=== PATIENT | female | born 1975 | race Caucasian/White ===

== ENCOUNTER 2019-06-01 05:29 | Outpatient (CLI) | payer OTHER ==
[~2019-06-01] VITALS: Ht 162.6 cm; Wt 94.3 kg
[~2019-06-01 05:29] MED LIST: AMOX1TAB63 PO; CEFU250T PO; CEPH500C PO; CITA40TA19 PO; CYCL10TA9 PO; DIAZ-345 PO; HYDR1TAB PO; KETO75CA PO; METH4TAB PO; NAPR-243 PO; NEOMYCIN; SULF1TAB38 PO; TRAM50TA2 PO; TRM50T PO; VILA1TAB PO; [UNRECOGNIZED DRUG - CODE] OD; [UNRECOGNIZED DRUG - OTHER]
[2019-06-01] MEDS ORDERED: DULO60CA6 PO (09:14)
== END 2019-06-01 09:33 | disposition home or self-care (01) ==
LOC: PREOP 05:29
PROVIDERS: ATTEND Obstetrics & Gynecology
DX: Z01.818 Encounter for other preprocedural examination (principal)

== ENCOUNTER 2019-06-13 08:29 | Day surgery (SDC) | payer OTHER ==
[2019-06-13] VITALS (10 sets, daily range): BP systolic 108–139; BP diastolic 50–90
[~2019-06-13] VITALS: Ht 162.6 cm; Wt 96.3 kg
[~2019-06-13 08:29] MED LIST changes: +DULO60CA6 PO
[2019-06-13] MEDS: LACTATED RINGERS 1,000 ML IV PRN ×2 (08:35→11:00)
[2019-06-13] MEDS ORDERED: BUP/EPI 0.25% 1:200,000 (MARCAINE) 10 ML VIAL IJ ONE (08:51)
[2019-06-13] MEDS ORDERED: proPOfol 200 MG/20 ML (DIPRIVAN) VIAL IV ONE ×2 (09:07→10:51)
[2019-06-13] MEDS ORDERED: DEXAMETHASONE 10 MG/ML (DECADRON) 1 ML VIAL ONE (09:07)
[2019-06-13] MEDS ORDERED: ONDANSETRON 4 MG/2 ML (SDV) Z0FRAN ONE (09:07)
[2019-06-13] MEDS ORDERED: SEVOFLURANE (ULTANE) 15 ML INHAL SOLN ONE (09:07)
[2019-06-13] MEDS ORDERED: fentaNYL INJECTION 100 MCG/2 ML AMP ONE (09:08)
[2019-06-13] MEDS ORDERED: MIDAZOLAM 2 MG/2 ML (VERSED) VIAL ONE ×3 (09:08→10:53)
[2019-06-13 09:12] LABS: BASOPHILS % (AUTO) 1 % (0-10); EOSINOPHILS # (AUTO) 0.1 10^3/uL (0.0-0.3); EOSINOPHILS % (AUTO) 1 % (0-10); HEMATOCRIT 39 % (35-52); HEMOGLOBIN 13.1 G/DL (11.5-16.0); LYMPHOCYTES % (AUTO) 32 % (12-44); MEAN CORPUSCULAR HEMOGLOBIN 30 PG (25-34); MEAN CORPUSCULAR HGB CONC 34 G/DL (32-36); MEAN CORPUSCULAR VOLUME 88 FL (80-99); MEAN PLATELET VOLUME 11.3 FL (7.4-10.4); MONOCYTES # (AUTO) 0.5 X 10^3 (0.0-1.0); MONOCYTES % (AUTO) 8 % (0-12); NEUTROPHILS # (AUTO) 3.7 X 10^3 (1.8-7.8); NEUTROPHILS % (AUTO) 59 % (42-75); PLATELET COUNT 197 10^3/uL (130-400); RED CELL DISTRIBUTION WIDTH 13.4 % (10.0-14.5); WHITE BLOOD COUNT 6.2 10^3/uL (4.3-11.0)
[2019-06-13] MEDS ORDERED: ONDANSETRON 4 MG/2 ML (SDV) Z0FRAN IVP PRN ×2 (10:45→11:30)
[2019-06-13] MEDS ORDERED: KETOROLAC 30 MG/ML VIAL IVP ONE (10:45)
[2019-06-13] MEDS ORDERED: D5 LR IV SOLUTION 1,000 ML IV SCH (10:45)
--- NOTE | 2019-06-13 10:56 | Progress Note-Pre Operative ---
Pre-Operative Progress Note H&P Reviewed The H&P was reviewed, patient examined and no changes noted. Date Seen by Provider: Jun 13, 2019 Time Seen by Provider: 10:55 Date H&P Reviewed: Jun 13, 2019 Time H&P Reviewed: 10:55 Pre-Operative Diagnosis: AUB, BMI 36 ISABELLA ESTEVEZ DO Jun 13, 2019 10:56
--- NOTE | 2019-06-13 11:01 | Discharge Inst-Women's Service ---
Discharge Inst-Women's Serv Depart Medication/Instructions New, Converted or Re-Newed RX: Other (OTC Motrin PRN pain) Problems Reviewed?: Yes Consults/Follow Up Additional Follow Up: Yes (Return to clinic 2-3 weeks) Activity Activity: Activity as Tolerated Driving Instructions: No Driving for 24 Hours NO SMOKING: NO SMOKING Diet Discharge Diet: No Restrictions Symptoms to Report to : Pain Increased, Fever Over 101 Degrees F, Vaginal Bleeding Increase For Any Problems or Questions: Contact Your Physician Skin/Wound Care Bathing Instructions: YOLANDA Armando APRN Jun 13, 2019 11:01
[2019-06-13] MEDS ORDERED: HYDROmorphone 2 MG/ML VIAL (DILAUDID) IV ONE (11:30)
--- NOTE | 2019-06-13 14:29 | Anesthesia-General Post-Op ---
General Patient Condition Mental Status/LOC: Same as Preop Cardiovascular: Satisfactory Nausea/Vomiting: Absent Respiratory: Satisfactory Pain: Controlled Complications: Absent Post Op Complications Complications None Follow Up Care/Instructions Patient Instructions None needed. Anesthesia/Patient Condition Patient Condition Patient is doing well, no complaints, stable vital signs, no apparent adverse anesthesia problems. No complications reported per nursing. FRANTZ SINGH CRNA Jun 13, 2019 14:29
--- NOTE | 2019-06-13 23:21 | OPERATIVE REPORT ---
DATE OF SERVICE: PREOPERATIVE DIAGNOSES: 1. A 44-year-old female with abnormal uterine bleeding. 2. BMI of 36. POSTOPERATIVE DIAGNOSES: 1. A 44-year-old female with abnormal uterine bleeding. 2. BMI of 36. PROCEDURE: D and C, hysteroscopy. SURGEON: Luis M Ryder DO ANESTHESIA: General endotracheal. ESTIMATED BLOOD LOSS: Minimal. URINE OUTPUT: 50 mL, clear, drained at the end of procedure. FLUIDS: 800 mL lactated Ringer's solution. FINDINGS: A grossly normal external female genitalia, vagina and cervix as well as endometrial cavity with thick endometrial tissue. SPECIMEN SENT: Endometrial curettings. INDICATIONS FOR PROCEDURE: This 44-year-old female was the patient that was consulted to my office for passing big blood clots with her periods that have become irregular and more heavy in the past 2 to 3 years. I discussed with the patient hormonal therapy being contraindicated due to her history of smoking. We discussed D and C as well as possible IUD placement down the line if results are not achieved by the traditional methods. The D and C would offer us both diagnostic and potentially curative method of dealing with her bleeding. Risks of the procedure were discussed with the patient in detail. After all of her questions were answered in the preoperative area, the patient's consent was obtained, the patient was taken to the operating room. OPERATIVE REPORT IN DETAIL: Once in the operating room, anesthesia was found to be adequate, she was placed in dorsal lithotomy position, prepped and draped in normal sterile fashion. A timeout was performed. Weighted speculum was inserted to the patient's vagina. Right angle retractor was used to visualize the cervix, which was grasped at 12 o'clock position using a long Allis clamp. I then performed paracervical block at 3 and 9 o'clock positions using 0.25% Marcaine. Care was taken to aspirate for injecting, 5 mL were injected at each injection site. I then gently sound the uterine cavity, depth was found to be 8 cm. I then gently dilated the cervix using Fely dilators to allow placement of my hysteroscope. Using the [employer]log[employer] fluid management system and normal saline as my visual medium, I advanced the hysteroscope into the endometrial cavity and I am unable to notice any endometrial masses. Bilateral tubal ostia were noted and appeared to be grossly normal. There are no submucosal fibroids noted. I then removed the hysteroscope and proceeded with performing curettage of the endometrial cavity. Moderate to large amount of endometrial tissue was collected after doing this. The specimen was then sent with endometrial curettings. All the instruments were removed from the patient's vagina. A straight catheterization is used to drain the bladder. The patient tolerated the procedure well and sent to recovery area in stable condition. Lap and sponge counts were correct at the end of the procedure. Instrument counts correct as well. Job ID: [id number] DocumentID: [id number] Dictated Date: 06/13/2019 11:40:39 Collections Manager Date: 06/13/2019 23:21:09 Dictated By: DO MIKE LOYOLA
== END 2019-06-13 13:45 | disposition home or self-care (01) ==
LOC: SDC 08:29
PROVIDERS: ATTEND Obstetrics & Gynecology
DX: N93.9 Abnormal uterine and vaginal bleeding, unspecified (principal); F41.9 Anxiety disorder, unspecified; F32.9 Major depressive disorder, single episode, unspecified; F17.210 Nicotine dependence, cigarettes, uncomplicated; Z68.36 Body mass index [BMI] 36.0-36.9, adult; Z88.5 Allergy status to narcotic agent; Z90.49 Acquired absence of other specified parts of digestive tract; Z98.51 Tubal ligation status; Z79.899 Other long term (current) drug therapy; Z82.3 Family history of stroke; Z82.49 Family history of ischemic heart disease and other diseases of the circulatory system; Z83.49 Family history of other endocrine, nutritional and metabolic diseases; Z81.8 Family history of other mental and behavioral disorders
CPT/HCPCS: 36415; 84703; 85025; 86850; 86900; 86901; 87081; 88305

== ENCOUNTER 2019-07-14 05:32 | Outpatient (CLI) | payer OTHER ==
[~2019-07-14] VITALS: Ht 162.6 cm; Wt 95.5 kg
[2019-07-18] MEDS ORDERED: SIME80TA16 PO (07:15)
[2019-07-18] MEDS ORDERED: HYDR-34 PO (07:15)
[2019-07-18] MEDS ORDERED: IBUP-844 PO (07:15)
[2019-07-18] MEDS ORDERED: DOCU100C37 PO (07:15)
== END 2019-07-14 09:46 | disposition home or self-care (01) ==
LOC: PREOP 05:32
PROVIDERS: ATTEND Obstetrics & Gynecology
DX: Z01.818 Encounter for other preprocedural examination (principal)

== ENCOUNTER 2021-07-26 03:02 | Emergency (ER) | payer SELFPAY ==
[~2021-07-26] VITALS: Ht 162.6 cm; Wt 95.2 kg
[~2021-07-26 03:02] MED LIST changes: +DOCU100C37 PO; +HYDR-34 PO; +IBUP-844 PO; +SIME80TA16 PO
[2021-07-26 03:10] VITALS: BP 149/84
--- NOTE | 2021-07-26 03:22 | ED EENT ---
History of Present Illness General Chief Complaint: Dental Problems/Pain Stated Complaint: WISDOM TEETH PULLED 2 DAYS AGO,POSS INFECTION Source: patient, other Exam Limitations: no limitations History of Present Illness Date Seen by Provider: Jul 26, 2021 Time Seen by Provider: 03:09 Initial Comments Patient presents the ER by private conveyance chief complaint that she had wisdom teeth taken out top and bottom on the right side 2 days ago. Since that time she feels is gotten an infection. She took a dose of azithromycin yesterday and another one this morning and still having significant pain. She has some Magic mouthwash which was helping with the pain until tonight and she cannot sleep. She is been using ibuprofen 600 mg every 6 hours and Tylenol 500 mg every [address] Junie DDS at [facility] is caring for her. Allergies and Home Medications Allergies Coded Allergies: codeine (Unverified Allergy, Mild, vomiting, 07/18/19) Patient Home Medication List Home Medication List Reviewed: Yes Docusate Sodium (Docusate Sodium) 100 Mg Capsule, 100 MG PO BID PRN for CONS TIPATION-1ST LINE Prescribed by: YOLANDA CARTER on 07/18/19714 Duloxetine HCl (Cymbalta) 60 Mg Capsule.dr, 60 MG PO DAILY, (Reported) Entered as Reported by: NAYELY CAMILO on 06/01/19913 Hydrocodone Bit/Acetaminophen (Lortab 7.5 Mg Tablet) 1 Ea Tablet, 2 EA PO Q6H PRN for Pain-See Instructions Prescribed by: YOLANDA CARTER on 07/18/19714 Ibuprofen (Ibu) 600 Mg Tablet, 600 MG PO Q6H PRN for PAIN-MODERATE Prescribed by: YOLANDA CARTER on 07/18/19714 Simethicone (Simethicone) 80 Mg Tab.chew, 40 MG PO TID PRN for INDIGESTION 2ND LINE Prescribed by: YOLANDA CARTER on 07/18/19714 Review of Systems Review of Systems Constitutional: No chills, No diaphoresis Eyes: Denies Blindness, Denies Blurred Vision Ears: Denies Dizziness, Denies Pain Nose: denies clots, denies congestion Mouth: see HPI, pain, swelling Throat: denies pain, denies swelling All Other Systems Reviewed Negative Unless Noted: Yes Past Rnbnoqf-Wssnop-Adhrmf Hx Patient Social History Tobacco Use?: No Use of E-Cig and/or Vaping dev: No Substance use?: No Immunizations Up To Date Tetanus Booster (TDap): More than 5yrs Seasonal Allergies Seasonal Allergies: No Past Medical History Surgeries: Yes (salivary gland drainage, D&C) Gallbladder, Tubal Ligation Respiratory: No Currently Using CPAP: No Currently Using BIPAP: No Cardiac: No Neurological: No Reproductive Disorders: No Female Reproductive Disorders: Menstrual Problems, Endometriosis, Ovarian Cyst [employer] HELPER History: Tubal Ligation Sexually Transmitted Disease: No HIV/AIDS: No Genitourinary: No Gastrointestinal: Yes Chronic Constipation Musculoskeletal: Yes (CHRONIC LOWER BACK PAIN) Chronic Back Pain Endocrine: No HEENT: No Loss of Vision: Denies Hearing Impairment: Denies Cancer: No Psychosocial: Yes Anxiety, Depression Integumentary: No Blood Disorders: Yes (ANEMIA) Adverse Reaction/Blood Tranf: No (HAS HAD BLOOD WITH NO REACTION) Family Medical History Cardiovascular disease 19 FATHER Completed stroke 19 FATHER Hypertension 19 FATHER 19 MOTHER Physical Exam Height, Weight, BMI Height: 5'4.00" Weight: 212lbs. 5.0oz. [id number]; 36.00 BMI Method:Stated General Appearance: WD/WN, mild distress Eyes: bilateral eye normal inspection, bilateral eye PERRL, bilateral eye EOMI Ears: bilateral ear auricle normal, bilateral ear canal normal Nose: normal inspection; No active bleeding Mouth/Throat: other (Stitches are in place in the gums look okay but mildly swollen erythematous in the sockets are closed. There is no pointing or exudate.) Neck: full range of motion, supple, normal inspection Cardiovascular: normal peripheral pulses, regular rate, rhythm Respiratory: no respiratory distress, no accessory muscle use Progress/Results/Core Measures Progress Progress Note : Time: 03:23 Progress Note The patient declined viscous lidocaine or pain medicines. She would like antibiotics. Rocephin and will put her on some Augmentin. Departure Impression Primary Impression: Dental abscess Disposition: 01 HOME, SELF-CARE Condition: Stable Departure-Patient Inst. Decision time for Depature: 03:23 Referrals: [facility] (PCP/Family) Primary Care Physician Patient Instructions: Dental Pain (DC) Add. Discharge Instructions: Augmentin 1 tablet with food twice a day for up to 10 days until the pain gets better. Follow-up with your dentist. Warm compresses applied to the face as often as necessary for pain relief. Tylenol 1000 mg every 8 hours as necessary for pain. Ibuprofen 800 mg every 8 hours as necessary for pain. Continue to use the Magic mouthwash as prescribed. All discharge instructions reviewed with patient and/or family. Voiced understanding. Scripts Amoxicillin/Potassium Clav (Augmentin 875-125 Tablet) 1 Each Tablet 1 EACH PO BID for 10 Days, #20 TAB 0 Refills Prov: IGLESIA DURÁN 07/26/21 IGLESIA DURÁN Jul 26, 2021 03:22
[2021-07-26] MEDS ORDERED: AMOX-358 PO (03:25)
[2021-07-26] MEDS ORDERED: LIDOCAINE 1% INJ 20 ML 20 ML VIAL INJ ONE (03:30)
[2021-07-26] MEDS ORDERED: cefTRIAXone 1,000 MG VIAL IM ONE (03:30)
== END 2021-07-26 03:31 | disposition home or self-care (01) ==
LOC: EDUNIT# 03:02 → ER 03:07
DX: K04.7 Periapical abscess without sinus (principal); F41.9 Anxiety disorder, unspecified; F32.9 Major depressive disorder, single episode, unspecified; G89.29 Other chronic pain; M54.9 Dorsalgia, unspecified; Z79.891 Long term (current) use of opiate analgesic; Z79.899 Other long term (current) drug therapy
CPT/HCPCS: 99284

== ENCOUNTER 2022-11-19 06:08 | Outpatient (CLI) | payer OTHER ==
[~2022-11-19] VITALS: Ht 162.6 cm; Wt 94.8 kg
[~2022-11-19 06:08] MED LIST changes: +AMOX-358 PO; -DULO60CA6 PO; +DULO60CA7 PO
[2022-11-19] MEDS ORDERED: ATOR10TA PO (10:24)
[2022-11-19] MEDS ORDERED: DESV100T PO (10:24)
[2022-11-19] MEDS ORDERED: LISD30CA3 PO (10:24)
[2022-11-19] MEDS ORDERED: SEMA2PEN SQ (10:24)
[2022-11-19] MEDS ORDERED: VARE1TAB28 PO (10:24)
== END 2022-11-19 10:32 | disposition home or self-care (01) ==
LOC: PREOP 06:08
PROVIDERS: ATTEND Surgery
DX: Z01.818 Encounter for other preprocedural examination (principal)